=== PATIENT | female | born 1930 | race Caucasian/White ===

== ENCOUNTER 2018-04-15 12:26 | Emergency (ER) | payer MEDICARE, OTHER ==
[~2018-04-15] VITALS: Ht 165.1 cm; Wt 65.8 kg
[~2018-04-15 12:26] MED LIST: AMLO10 PO; ATEN25 PO; COLE625 PO; Keflex500 MG PO; OLME20 PO; TEMA7.5 PO
[2018-04-15] MEDS ORDERED: Colace100 MG PO (14:33)
[2018-04-15] MEDS ORDERED: Norco 5-325 Ta1 EACH PO (14:33)
[2018-04-15 14:36] LABS: Source, Urine Clean Catch
[2018-04-15 14:45] LABS: Bilirubin, Urine Neg (Neg); Blood, Urine Neg (Neg); Glucose Qualitative, Urine Neg (Neg); Ketones, Urine Neg (Neg); Leukocyte Esterase, Urine 1+ (Neg); Nitrite, Urine Neg (Neg); Protein, Urine Neg (Neg); Specific Gravity, Urine 1.005 (1.003-1.022); Urobilinogen, Urine NORM (Normal)
[2018-04-15 14:51] LABS: Appearance, Urine Clear (Clear); Color, Urine Yellow (P-Yellow)
[2018-04-15 14:55] LABS: Bacteria Few /hpf; Red Blood Cells, Urine 0-2 /hpf (0-2); Squamous Epithelial Cells Few /hpf (Few)
== END 2018-04-15 14:46 | disposition home or self-care (01) ==
LOC: ER 12:26
PROVIDERS: Physician Assistant
DX: S32.019A Unspecified fracture of first lumbar vertebra, initial encounter for closed fracture (principal); M48.061 Spinal stenosis, lumbar region without neurogenic claudication; X58.XXXA Exposure to other specified factors, initial encounter; Z79.899 Other long term (current) drug therapy
CPT/HCPCS: 72100; 72131; 72170; 81001; 87086